=== PATIENT | female | born 1975 | race Native Hawaiian/Other Pacific Islander ===

== ENCOUNTER 2017-02-28 14:47 | Inpatient (IN) | payer OTHER ==
--- NOTE | 2017-02-28 16:38 | History and Physical Report ---
History of Present Illness Date of admission: 02/28/17 16:19 Chief complaint: My blood is low History of present illness: 41 YO Female with Nicotine Dependence, Migraine Headache, Chronic Anemia admitted directly at the request of Dr. Sharad Vasquez. Pt seen and evaluated in PCP office and found to have persistent anemia while on iron replacement therapy. Pt seen and evaluated upon arrival. Pt acknowledges feeling weak. Pt denies fever, chills, CP, Palpitations, NVD, BRBPR, unintentional weight loss, night sweats, hematemesis, easy bruising, trauma, or recent ill contacts. Past History Past Medical History: anemia, migraines Past Surgical History: No surgical history, Other (reviewed) Social history: , lives with family, smoking Family history: no significant family history Medications and Allergies Allergies Allergy/AdvReac Type Severity Reaction Status Date / Time No Known Allergies Allergy Verified 11/11/15 23:43 Home Medications Medication Instructions Recorded Confirmed Last Taken Type Butalbital-Acetaminophn 50-325 40 mg PO DAILY 11/11/15 11/11/15 1 Day Ago History ~11/10/15 Ferrous Sulfate 325 mg PO DAILY 11/11/15 11/11/15 1 Day Ago History ~11/10/15 Meclizine 25 mg PO DAILY 11/11/15 11/11/15 1 Day Ago History ~11/10/15 Nystatin 100,000 units PO 4XD 11/11/15 11/11/15 1 Day Ago History ~11/10/15 HYDROcodone/APAP 5-325 [[place] 1 each PO Q6HR PRN #10 tablet 11/12/15 Unknown Rx 5/325] Review of Systems Constitutional: weakness, no weight loss, no weight gain, no fever, no chills, no night sweats Ears, nose, mouth and throat: no ear pain, no ear discharge, no tinnitis, no decreased hearing, no nose pain, no nasal congestion Breasts: no change in shape, no swelling, no mass Cardiovascular: no chest pain, no orthopnea, no palpitations, no rapid/ irregular heart beat, no edema, no syncope Respiratory: no cough, no cough with sputum, no excessive sputum, no hemoptysis , no shortness of breath Gastrointestinal: no nausea, no vomiting, no diarrhea, no constipation, no hematemesis, no coffee ground emesis, no BRBPR, no melena, no hematochezia, no loss of appetite, no early satiety Genitourinary Female: no pelvic pain, no flank pain, no menorrhagia, no dysuria Rectal: no pain, no incontinence, no bleeding, no itching Musculoskeletal: no neck stiffness, no neck pain, no shooting arm pain, no arm numbness/tingling, no low back pain Integumentary: no rash, no pruritis, no redness, no sores, no wounds Neurological: no head injury, no transient paralysis, no paralysis, no weakness , no parathesias, no numbness Psychiatric: no anxiety, no memory loss, no change in sleep habits, no sleep disturbances, no insomnia, no hypersomnia Endocrine: no cold intolerance, no heat intolerance, no polyphagia, no excessive thirst, no polydipsia, no polyuria Hematologic/Lymphatic: no easy bruising, no easy bleeding, no lymphadenopathy, no lymphedema Allergic/Immunologic: no urticaria, no allergic rhinitis, no wheezing Exam - Constitutional General appearance: Present: mild distress - EENT Eyes: Present: PERRL, EOM intact (conjunctival pallor) ENT: hearing intact, clear oral mucosa - Neck Neck: Present: supple, normal ROM - Respiratory Respiratory effort: normal Respiratory: bilateral: CTA - Cardiovascular Heart Sounds: Present: S1 & S2. Absent: rub, click - Extremities Extremities: pulses symmetrical, No edema Peripheral Pulses: within normal limits - Abdominal General gastrointestinal: Present: soft, non-tender, non-distended, normal bowel sounds Female genitourinary: Present: normal - Integumentary Integumentary: Present: clear, warm, dry - Musculoskeletal Musculoskeletal: gait normal, strength equal bilaterally - Psychiatric Psychiatric: appropriate mood/affect, intact judgment & insight - Neurologic Neurologic: CNII-XII intact, moves all extremities Results - Labs CBC & Chem 7: 03/01/17 02:30 02/28/17 21:02 Assessment and Plan - Patient Problems (1) Symptomatic anemia Current Visit: Yes Status: Acute Plan to address problem: PRBC Transfusion, Iron panel, Hematology consult, CT abdomen pelvis, (2) Migraine headache Current Visit: Yes Status: Acute Qualifiers: Migraine type: without aura Intractability: not intractable Plan to address problem: Supportive care, pain control, continue medical management. (3) Nicotine dependence Current Visit: Yes Status: Acute Qualifiers: Nicotine product type: cigarettes Substance use status: in withdrawal Qualified Code(s): F17.213 - Nicotine dependence, cigarettes, with withdrawal Plan to address problem: supportive care, Pt refused to pick quit date. Pt counseled. (4) DVT prophylaxis Current Visit: Yes Status: Acute
[2017-02-28] MEDS ORDERED: DULCOLAX PR PRN (16:41)
[2017-02-28] MEDS ORDERED: MILK OF MAGNESIA PO PRN (16:41)
[2017-02-28] MEDS ORDERED: ZOFRAN IV PRN (16:41)
[2017-02-28] MEDS ORDERED: PROVENTIL IH PRN (16:41)
[2017-02-28] MEDS ORDERED: PERCOCET 5/325 PO PRN (16:41)
[2017-02-28] MEDS ORDERED: TYLENOL PO PRN (16:41)
--- NOTE | 2017-02-28 19:16 | XRay Report ---
FINAL REPORT EXAM: XR CHEST 1V AP HISTORY: dupsnea TECHNIQUE: upright single view chest PRIORS: None. FINDINGS: Cardiac and mediastinal contours are unremarkable. No focal pulmonary infiltrate is identified. No pleural fluid collection seen. Pulmonary vasculature is unremarkable. IMPRESSION: Negative single-view chest
[2017-02-28 21:31] LABS: Hematocrit 20.3 % (30.3-42.9); Red Blood Count 3.36 M/mm3 (3.65-5.03)
[2017-02-28 21:32] LABS: Basophils # (Auto) 0.1 K/mm3 (0.0-0.1); Basophils % (Auto) 1.9 % (0.0-1.8); Eosinophils # (Auto) 0.1 K/mm3 (0.0-0.4); Eosinophils % (Auto) 1.5 % (0.0-4.3); Lymphocytes # (Auto) 1.8 K/mm3 (1.2-5.4); Mean Corpuscular HGB Conc 29 % (30-34); Mean Corpuscular Hemoglobin 17 pg (28-32); Mean Corpuscular Volume 60 fl (79-97); Monocytes # (Auto) 0.4 K/mm3 (0.0-0.8); Monocytes % (Auto) 5.7 % (0.0-7.3); Platelet Count 314 K/mm3 (140-440); Red Cell Distribution Width 23.4 % (13.2-15.2)
[2017-02-28 21:38] LABS: Hemoglobin 5.9 gm/dl (10.1-14.3)
[2017-02-28 21:53] LABS: Alanine Aminotransferase 9 units/L (7-56); Albumin 4.1 g/dL (3.9-5); BUN/Creatinine Ratio 32; Blood Urea Nitrogen 16 mg/dL (7-17); Calcium 8.7 mg/dL (8.4-10.2); Hemolysis Index 4
[2017-03-01 03:12] LABS: Hemoglobin 5.6 gm/dl (10.1-14.3)
[2017-03-01] MEDS ORDERED: NACL 0.9% 500 ML 500 ML IV ONE (03:31)
--- NOTE | 2017-03-01 09:45 | Cat Scan Report ---
CT ABDOMEN PELVIS WITH CONTRAST: HISTORY: Anemia. COMPARISON: none. TECHNIQUE: Helical CT in 1.25mm intervals following IV contrast. Sagittal and coronal reconstructions. FINDINGS: Lung bases: Normal. Liver: Normal. Biliary system: Normal. Pancreas: Normal. Spleen: Normal. Kidneys/ureters/bladder: Normal. Adrenal glands: Normal. Aorta: Normal. Intestines: Normal. Appendix: Normal. Pelvic viscera: Normal. Ascites: None. Adenopathy: None. Musculoskeletal: Normal. IMPRESSION: Unremarkable CT scan of the abdomen and pelvis with contrast.
[2017-03-01] MEDS ORDERED: FEOSOL PO SCH (10:00)
[2017-03-01] MEDS ORDERED: ANTIVERT PO SCH (10:00)
[2017-03-01] MEDS ORDERED: NON-FORMULARY (Ferrous Sulfate 325 MG) PO SCH (10:00)
[2017-03-01] MEDS ORDERED: BUTALBITAL ACETAMINOPHN PO SCH (10:00)
[2017-03-01] MEDS ORDERED: MECLIZINE 25 MG PO SCH (10:00)
--- NOTE | 2017-03-01 10:59 | Discharge Summary ---
Providers - Providers Date of Admission: 02/28/17 16:19 Attending physician: STANLEY BUCIO MD 03/01/17 03:18 Consult to Physician [CONS] Urgent Consulting Provider: MANUEL HOFF Reason For Exam: Anemia Place consult to:: Dr. Hoff Notified:: Dr. Ramos Phone number called:: [phone] Was contact made?: Yes If yes, spoke with:: Dr. Hoff Primary care physician: VY GAY Hospitalization Reason for admission: symptomatic anemia Hospital course: Patient is a 41-year-old female with history of anemia who was sent by the primary care physician for direct admit for blood transfusion. On admission patient was found to have severely decreased hemoglobin at 5. She was transfused 2 units packed red blood cell with good resolution. She is totally asymptomatic at this time. She reports that she normally gets IV iron infusion. She denies any GI bleed she reports 5 day menstrual cycle which she does not describe as heavy. She understands to follow-up with hematology outpatient and to continue her primary care sense of counseling was provided to the patient presented to quit tobacco use patient verbalized understanding. 15 minutes was spent on this counseling Discharge diagnosis (1) Symptomatic anemia (2) Migraine headache (3) Nicotine dependence (4) iron deficiency anemia Disposition: TO HOME OR SELFCARE Time spent for discharge: 35 mins Core Measure Documentation - Palliative Care Palliative Care/ Comfort Measures: Not Applicable - Core Measures Any of the following diagnoses?: none - VTE Discharge Requirements Deep Vein Thrombosis/Pulmonary Embolism Present on Admission: No Exam - Physical Exam Narrative exam: VITAL SIGNS: Reviewed. GENERAL: The patient appeared well nourished and normally developed. Vital signs as documented. HEAD: No signs of head trauma. EYES: Pupils are equal. Extraocular motions intact. EARS: Hearing grossly intact. MOUTH: Oropharynx is normal. NECK: No adenopathy, no JVD. CHEST: Chest with clear breath sounds bilaterally. No wheezes, rales, or rhonchi. CARDIAC: Regular rate and rhythm. S1 and S2, without murmurs, gallops, or rubs. VASCULAR: No Edema. Peripheral pulses normal and equal in all extremities. ABDOMEN: Soft, without detectable tenderness. No sign of distention. No rebound or guarding, and no masses palpated. Bowel Sounds normal. MUSCULOSKELETAL: Good range of motion of all major joints. Extremities without clubbing, cyanosis or edema. NEUROLOGIC EXAM: Alert and oriented x 3. No focal sensory or strength deficits. Speech normal. Follows commands. PSYCHIATRIC: Mood normal. SKIN: No rash or lesions. - Constitutional Vitals: Temp Pulse Resp BP Pulse Ox 98.6 F 76 18 142/56 100 03/01/17 07:47 03/01/17 07:47 03/01/17 07:47 03/01/17 07:47 03/01/17 07:47 Plan Activity: advance as tolerated, fall precautions Diet: low fat Special Instructions: smoking cessation Follow up with: VY GAY MD [Primary Care Provider] - 7 Days MANUEL HOFF DO [Staff Physician] - 7 Days Prescriptions: Ferrous Sulfate [Feosol 325 MG tab] 325 mg PO BID #60 tablet
[2017-03-01] MEDS ORDERED: NACL 0.9% 500 ML 500 ML ONE (11:24)
[2017-03-01 13:58] LABS: % Iron Saturation 2.55 %
[2017-03-01 17:59] LABS: Hematocrit 27.7 % (30.3-42.9); Hemoglobin 8.6 gm/dl (10.1-14.3)
[2017-03-01 18:16] VITALS: BP 135/69
== END 2017-03-01 19:00 | disposition home or self-care (01) | DRG 812 ==
LOC: UNDOADMIN 14:47 → 3A 14:47
PROVIDERS: ADMIT Internal Medicine; ATTEND Internal Medicine
PROC: 30233N1 Transfusion of Nonautologous Red Blood Cells into Peripheral Vein, Percutaneous Approach (ICD-10-PCS; principal; 2017-03-01)
DX: D64.9 Anemia, unspecified (principal); G43.009 Migraine without aura, not intractable, without status migrainosus; F17.200 Nicotine dependence, unspecified, uncomplicated
CPT/HCPCS: 36415; 71045; 74177; 80053; 82270; 83550; 85014; 85018; 85025; 86850; 86900; 86901; 86920; 93005; 93010; J7040; P9016; Q9967

== ENCOUNTER 2019-01-28 17:06 | Inpatient (IN) | payer OTHER ==
--- NOTE | 2019-01-28 17:34 | Cat Scan Report ---
CT head/brain wo con INDICATION / CLINICAL INFORMATION: 43 years Female; neuro deficits <6hrs or sx present upon awakening. Altered mental status and hyperte nsion TECHNIQUE: Routine CT head without contrast. All CT scans at this location are performed using CT dos e reduction for ALARA by means of automated exposure control. COMPARISON: None. FINDINGS: BRAIN / INTRACRANIAL CONTENTS: No acute hemorrhage, mass effect, midline shift, hydrocephalus, or acu te, large territorial infarct. No chronic infarct or atrophy appreciated. No significant white matter abnormality. CRANIOCERVICAL JUNCTION: No significant abnormality. ORBITS: No significant abnormality of visualized orbits. SINUSES / MASTOIDS: No significant abnormality the visualized paranasal sinuses or mastoid air cells. ADDITIONAL FINDINGS: None. IMPRESSION: 1. No focal mass, hemorrhage, hydrocephalus, or acute, large territorial infarct. This exam was performed as part of a code stroke protocol. The exam was completed on 01/28/2019 4:22 PM. The exam was reviewed at 4:[address] Siegel was notified at 4:27 PM. Signer Name: Bernardo Baker MD, III Signed: 01/28/2019 5:29 PM Workstation Name: [id number]
--- NOTE | 2019-01-28 17:40 | Emergency Department Report ---
ED Altered Mental Status HPI - General Stated Complaint: STROKE Time Seen by Provider: 01/28/19 17:17 - History of Present Illness Initial Comments: Patient is 43 years old female with previous history of migraine and undiagnosed hypertension. Patient presented to the ER via EMS for evaluation of possible stroke. Patient's significant other stated that patient was doing well until approximately 1 PM when she started complaining of headache and then she went to sleep. Patient found to be unresponsive. Patient is unable to provide any more history. Patient found to have a blood pressure of 224/116. Stroke protocol immediately initiated and patient moved to CT. Telemetry neurology immediately consulted. MD Complaint: altered mental status, decreased responsiveness -: This afternoon Severity: severe - Related Data Home Medications Medication Instructions Recorded Confirmed Last Taken Butalbital-Acetaminophn 50-325 40 mg PO DAILY 11/11/15 11/11/15 1 Day Ago ~11/10/15 Ferrous Sulfate 325 mg PO DAILY 11/11/15 11/11/15 1 Day Ago ~11/10/15 Meclizine 25 mg PO DAILY 11/11/15 11/11/15 1 Day Ago ~11/10/15 Nystatin 100,000 units PO 4XD 11/11/15 11/11/15 1 Day Ago ~11/10/15 Previous Rx's Medication Instructions Recorded Last Taken Type HYDROcodone/APAP 5-325 [[place] 1 each PO Q6HR PRN #10 tablet 11/12/15 Unknown Rx 5-325 mg TAB] Ferrous Sulfate [Feosol 325 MG tab] 325 mg PO BID #60 tablet 03/01/17 Unknown Rx Allergies Allergy/AdvReac Type Severity Reaction Status Date / Time No Known Allergies Allergy Verified 11/11/15 23:43 ED Review of Systems ROS: Stated complaint: STROKE Other details as noted in HPI Comment: All other systems reviewed and negative Constitutional: denies: chills, fever Respiratory: denies: cough, shortness of breath, SOB with exertion Cardiovascular: denies: chest pain, palpitations Gastrointestinal: denies: abdominal pain, nausea, diarrhea, constipation, hematemesis, hematochezia Musculoskeletal: denies: back pain Neurological: headache ED Past Medical Hx - Past Medical History Hx Congestive Heart Failure: No Hx Diabetes: No Hx Headaches / Migraines: Yes Hx Psychiatric Treatment: Yes (Depression) Hx Asthma: No Hx HIV: No Additional medical history: anemia - Surgical History Past Surgical History?: Yes Additional Surgical History: x 2 - Social History Smoking Status: Never Smoker - Medications Home Medications: Home Medications Medication Instructions Recorded Confirmed Last Taken Type Butalbital-Acetaminophn 50-325 40 mg PO DAILY 11/11/15 11/11/15 1 Day Ago History ~11/10/15 Ferrous Sulfate 325 mg PO DAILY 11/11/15 11/11/15 1 Day Ago History ~11/10/15 Meclizine 25 mg PO DAILY 11/11/15 11/11/15 1 Day Ago History ~11/10/15 Nystatin 100,000 units PO 4XD 11/11/15 11/11/15 1 Day Ago History ~11/10/15 HYDROcodone/APAP 5-325 [[place] 1 each PO Q6HR PRN #10 tablet 11/12/15 Unknown Rx 5-325 mg TAB] Ferrous Sulfate [Feosol 325 MG tab] 325 mg PO BID #60 tablet 03/01/17 Unknown Rx ED Physical Exam - General General appearance: obtunded - Head Head exam: Present: atraumatic, normocephalic - Eye Eye exam: Present: normal appearance, PERRL - ENT ENT exam: Present: normal exam, normal orophraynx, mucous membranes moist - Neck Neck exam: Present: normal inspection, full ROM. Absent: tenderness, meningismus, lymphadenopathy, thyromegaly - Respiratory Respiratory exam: Present: normal lung sounds bilaterally - Cardiovascular Cardiovascular Exam: Present: regular rate, normal rhythm, normal heart sounds - GI/Abdominal GI/Abdominal exam: Present: soft, normal bowel sounds. Absent: distended, tend erness, guarding, rebound, rigid, organomegaly, mass, bruit, pulsatile mass, hernia - Extremities Exam Extremities exam: Present: normal inspection, full ROM, normal capillary refill. Absent: pedal edema, calf tenderness - Back Exam Back exam: Present: normal inspection, full ROM. Absent: CVA tenderness (R), CVA tenderness (L) - Neurological Exam Neurological exam: Present: altered - Skin Skin exam: Present: warm, intact, normal color - Assessment Assessment Interval: Baseline ED Course Vital Signs 01/28/19 01/28/19 01/28/19 17:24 17:46 18:00 Temperature 97.9 F Pulse Rate 76 71 66 Respiratory 17 14 16 Rate Blood Pressure 191/81 173/80 Blood Pressure 191/81 [Right] O2 Sat by Pulse 100 100 100 Oximetry 01/28/19 01/28/19 01/28/19 19:54 19:58 21:03 Temperature 98.8 F Pulse Rate 73 Respiratory 12 12 16 Rate Blood Pressure Blood Pressure 165/78 [Right] O2 Sat by Pulse 100 100 Oximetry - Lab Data Result diagrams: 01/28/19 17:47 01/28/19 17:47 Lab Results 01/28/19 01/28/19 01/28/19 Range/Units 17:47 17:47 17:47 WBC 7.6 (4.5-11.0) K/mm3 RBC 4.07 (3.65-5.03) M/mm3 Hgb 10.2 (10.1-14.3) gm/dl Hct 31.8 (30.3-42.9) % MCV 78 L (79-97) fl MCH 25 L (28-32) pg MCHC 32 (30-34) % RDW 19.0 H (13.2-15.2) % Plt Count 366 (140-440) K/mm3 Lymph % (Auto) 15.3 (13.4-35.0) % [place] % (Auto) 10.4 H (0.0-7.3) % Eos % (Auto) 0.2 (0.0-4.3) % Baso % (Auto) 0.9 (0.0-1.8) % Lymph # 1.2 (1.2-5.4) K/mm3 [place] # 0.8 (0.0-0.8) K/mm3 Eos # 0.0 (0.0-0.4) K/mm3 Baso # 0.1 (0.0-0.1) K/mm3 Seg Neutrophils % 73.2 H (40.0-70.0) % Seg Neutrophils # 5.6 (1.8-7.7) K/mm3 PT 13.3 (12.2-14.9) Sec. INR 1.00 (0.87-1.13) APTT 26.4 (24.2-36.6) Sec. Thrombin Time (15.1-19.6) Sec. Sodium 138 (137-145) mmol/L Potassium 3.6 (3.6-5.0) mmol/L Chloride 101.2 (98-107) mmol/L Carbon Dioxide 19 L (22-30) mmol/L Anion Gap 21 mmol/L BUN 19 H (7-17) mg/dL Creatinine 0.6 L (0.7-1.2) mg/dL Estimated GFR > 60 ml/min BUN/Creatinine Ratio 32 % Glucose 114 H (65-100) mg/dL Calcium 9.1 (8.4-10.2) mg/dL Troponin T < 0.010 (0.00-0.029) ng/mL 01/28/19 Range/Units 17:47 WBC (4.5-11.0) K/mm3 RBC (3.65-5.03) M/mm3 Hgb (10.1-14.3) gm/dl Hct (30.3-42.9) % MCV (79-97) fl MCH (28-32) pg MCHC (30-34) % RDW (13.2-15.2) % Plt Count (140-440) K/mm3 Lymph % (Auto) (13.4-35.0) % [place] % (Auto) (0.0-7.3) % Eos % (Auto) (0.0-4.3) % Baso % (Auto) (0.0-1.8) % Lymph # (1.2-5.4) K/mm3 [place] # (0.0-0.8) K/mm3 Eos # (0.0-0.4) K/mm3 Baso # (0.0-0.1) K/mm3 Seg Neutrophils % (40.0-70.0) % Seg Neutrophils # (1.8-7.7) K/mm3 PT (12.2-14.9) Sec. INR (0.87-1.13) APTT (24.2-36.6) Sec. Thrombin Time 18.1 (15.1-19.6) Sec. Sodium (137-145) mmol/L Potassium (3.6-5.0) mmol/L Chloride (98-107) mmol/L Carbon Dioxide (22-30) mmol/L Anion Gap mmol/L BUN (7-17) mg/dL Creatinine (0.7-1.2) mg/dL Estimated GFR ml/min BUN/Creatinine Ratio % Glucose (65-100) mg/dL Calcium (8.4-10.2) mg/dL Troponin T (0.00-0.029) ng/mL - EKG Data -: EKG Interpreted by Me EKG shows normal: sinus rhythm Rate: normal Interpretation: no acute changes - Radiology Data Radiology results: report reviewed - Medical Decision Making Patient is 43 years old female with previous history of migraine and undiagnosed hypertension. Patient presented to the ER via EMS for evaluation of possible stroke. Patient's significant other stated that patient was doing well until approximately 1 PM when she started complaining of headache and then she went to sleep. Patient found to be unresponsive. Patient is unable to provide any more history. Patient found to have a blood pressure of 224/116. Stroke protocol immediately initiated and patient moved to CT. Telemetry neurology immediately consulted. CT brain is negative for acute finding. Labs reviewed and is unremarkable. Patient has been evaluated by Dr. Gaspar from a stroke telemetry neurology. He stated that patient is not a TPA candidate because of the onset of the symptoms more than 4.5 hours. He also advised that patient is not a thrombectomy a candidate since her presentation is not consistent with large vessel occlusion. I discussed the patient with Dr. Esperanza Shafer, She agreed to admit the patient to medical service for further management. Critical Care Time: Yes Critical care time in (mins) excluding proc time.: 30 Critical care attestation.: If time is entered above; I have spent that time in minutes in the direct care of this critically ill patient, excluding procedure time. ED Disposition Clinical Impression: Complicated headache syndromes, CVA (cerebral vascular accident), Headache Disposition: 09 OP ADMIT IP TO THIS HOSP Is pt being admited?: Yes Condition: Stable
[2019-01-28] MEDS ORDERED: MORPHINE 4 MG/1 ML INJ IV ONE (17:52)
[2019-01-28] MEDS ORDERED: ONDANSETRON 4 MG/2 ML INJ IV ONE (17:52)
--- NOTE | 2019-01-28 17:58 | Emergency Department Report ---
ED Neuro Deficit HPI - General Chief Complaint: Headache Stated Complaint: STROKE Time Seen by Provider: 01/28/19 17:17 Source: family - History of Present Illness Initial Comments: [facility] TeleStroke Metrics: LKW: 1200 Door Time: 1706 [facility] Contacted: 1713 [facility] at Bedside: 1730 NIHSS: 1737 Decision on Alteplase: Not to give as her last known well time is greater than 4.5 hours prior to her presentation. Interventional Candidate: Not a candidate as her symptoms are not consistent with a large vessel proximal occlusion. Chief Complaint: Severe headaches and right-sided weakness HPI: Asked to see this patient in emergent telemedicine consultation utilizing interactive audio and video technologies. Consultation was performed with assistance of ancillary / medical staff at bedside. Verbal consent to perform the examination with telemedicine was obtained. Patients family agreed to proceed with the consultation for acute stroke protocol. 43-year-old right-handed female who comes to the emergency room by EMS as a stroke alert for severe headaches and right-sided weakness. Patient's children are at bedside to assist with history and Romanian translation. Patient with a longstanding history of migraine headaches and essentially gets significant headaches every other day. She usually takes ibuprofen for her headaches. She also has been taking Xanax more recently and some type of unknown antidepressant. According to the son, he last saw the patient around 12 PM. She was complaining of chest pain and a headache. She was very tearful. He gave her some ibuprofen, and she went to sleep. He went to go do some errands. He came back home around 4 PM, and he noted the patient was unresponsive. She continued to complain of a significant headache and was noted to have right-sided weakness. Therefore, EMS was called. Currently, the patient has evidence of right-sided weakness and numbness. She is still very tearful and tremulous. She complains of a significant left-sided headache with significant nausea but no photophobia. She states that her current headaches are different from her typical migraines. She complains of an exploding type headache on the left side of her head. Head CT came back negative. PMH: Migraine headaches, anemia, and anxiety disorder SOC: Positive for tobacco abuse. Negative x2. Patient is . She lives with her son. FMH: Positive for stroke. ROS: 13 point review of systems were reviewed with the patients family, and are all negative with the exception of the aforementioned in the history of present illness. VS: Temperature 97.9 F, pulse 76, respiration 17, blood pressure 191/81, oxygen saturation 100% Exam: Patient is in moderate distress and is tearful. Patient appears as stated age. No obvious acute respiratory or cardiac distress. Patient is well groomed and well-nourished. 1a- LOC: Keenly responsive - 0 1b- LOC questions: Answers both questions correctly - 0 1c- LOC commands- Performs both tasks correctly- 0 2- Gaze: Normal; no gaze paresis or gaze deviation - 0 3- Visual Grant: normal, no Visual field deficit - 0 4- Facial movements: no facial palsy - 0 5- Upper limb motor right arm drift - 2 6- Lower limb motor right leg drift - 2 7- Limb Coordination: absent ataxia - 0 8- Sensory: right sensory loss - 1 9- Language - No aphasia - 0 10- Speech - Mild dysarthria - 1 11- Neglect / Extinction - none found - 0 NIHSS score: 6 Diagnostic Data: CT of the head showed no acute intracranial process Medical Data Reviewed: 1.Data?reviewed include clinical labs, radiology,?and medical tests; 2.Tests?results discussed w/performing or interpreting physician; 3.Obtaining/reviewing old medical records; 4.Obtaining?case history from another source; 5.Independent?review of image, tracing, or specimen. Medical Decision Making: - Extensive number of diagnosis or management options are considered below. - Extensive amount of complex data reviewed. - High risk of complication and/or morbidity or mortality are associated with differential diagnostic considerations below. - There may be?uncertain?outcome and increased probability of prolonged functional impairment or high probability of severe prolonged functional impairment associated with some of these differential diagnosis. Differential Diagnosis for Stroke: 1.?Cardioembolic?stroke 2. Small vessel disease/lacune 3. Thromboembolic, fivvet-wh-puygwn mechanism 4.?Hypercoagulable?state-related infarct 5. Transient ischemic attack 6. Thrombotic mechanism, large artery disease Assessment: 1. Probable complicated migraine 2. Chest pain 3. Tobacco abuse 4. Migraine headaches/chronic daily headaches 5. Anxiety disorder 6. Anemia Recommendations: Patient should have an emergent CTA of the head and neck to rule out any intracranial aneurysm or vascular injury. Patient should be admitted to the hospital for further work-up of her symptoms. Chest pain work-up per primary team. Check urine drug screen, hemoglobin A1c, and lipid panel. Check MRI brain with and without contrast to rule out any acute intracranial process. IV migraine cocktail medications per ER team. Consult PT, OT, and ST. Check echocardiogram to gauge her cardiac function. Maintain the patient on telemetry to monitor for any paroxysmal cardiac arrhythmias. Patient would benefit from a lumbar puncture for CSF analysis within the next 24 hours if she continues to have severe headaches and also if her MRI/CTAs are negative. Continue supportive care. Plan of care was discussed with the patient's family. Thank you for allowing [facility] to participate in the care of your patient. Please call me, Dr. Giordano, with any questions at [phone]. Case discussed with the ER staff and Dr. Linda. Critical Care notation: I was called to see this critical patient emergently. I personally evaluated this critical patient for acute stroke evaluation, and determining their eligibility for IV Alteplase and interventional therapies. I have spent approximately 11 minutes with the patient, including time at bedside, time discussing the case with other physicians, reviewing plan of care, and time independently reviewing the records and scans. Severity: severe - Related Data Home Medications: Home Medications Medication Instructions Recorded Confirmed Last Taken Butalbital-Acetaminophn 50-325 40 mg PO DAILY 11/11/15 11/11/15 1 Day Ago ~11/10/15 Ferrous Sulfate 325 mg PO DAILY 11/11/15 11/11/15 1 Day Ago ~11/10/15 Meclizine 25 mg PO DAILY 11/11/15 11/11/15 1 Day Ago ~11/10/15 Nystatin 100,000 units PO 4XD 11/11/15 11/11/15 1 Day Ago ~11/10/15 Previous Rx's Medication Instructions Recorded Last Taken Type HYDROcodone/APAP 5-325 [[place] 1 each PO Q6HR PRN #10 tablet 11/12/15 Unknown Rx 5-325 mg TAB] Ferrous Sulfate [Feosol 325 MG tab] 325 mg PO BID #60 tablet 03/01/17 Unknown Rx Allergies/Adverse Reactions: Allergies Allergy/AdvReac Type Severity Reaction Status Date / Time No Known Allergies Allergy Verified 11/11/15 23:43 ED Review of Systems ROS: Stated complaint: STROKE Other details as noted in HPI Constitutional: denies: chills, fever Respiratory: denies: cough, shortness of breath, SOB with exertion Cardiovascular: denies: chest pain, palpitations Gastrointestinal: denies: abdominal pain, nausea, diarrhea, constipation, hematemesis, hematochezia Musculoskeletal: denies: back pain Neurological: headache ED Past Medical Hx - Past Medical History Hx Congestive Heart Failure: No Hx Diabetes: No Hx Headaches / Migraines: Yes Hx Psychiatric Treatment: Yes (Depression) Hx Asthma: No Hx HIV: No Additional medical history: anemia - Surgical History Past Surgical History?: Yes Additional Surgical History: x 2 - Social History Smoking Status: Never Smoker - Medications Home Medications: Home Medications Medication Instructions Recorded Confirmed Last Taken Type Butalbital-Acetaminophn 50-325 40 mg PO DAILY 11/11/15 11/11/15 1 Day Ago History ~11/10/15 Ferrous Sulfate 325 mg PO DAILY 11/11/15 11/11/15 1 Day Ago History ~11/10/15 Meclizine 25 mg PO DAILY 11/11/15 11/11/15 1 Day Ago History ~11/10/15 Nystatin 100,000 units PO 4XD 11/11/15 11/11/15 1 Day Ago History ~11/10/15 HYDROcodone/APAP 5-325 [[place] 1 each PO Q6HR PRN #10 tablet 11/12/15 Unknown Rx 5-325 mg TAB] Ferrous Sulfate [Feosol 325 MG tab] 325 mg PO BID #60 tablet 03/01/17 Unknown Rx ED Neuro Physical Exam - General General appearance: obtunded Suspected Stroke: No ED Course Vital Signs 01/28/19 17:24 Temperature 97.9 F Pulse Rate 76 Respiratory 17 Rate Blood Pressure 191/81 [Right] O2 Sat by Pulse 100 Oximetry Critical care attestation.: If time is entered above; I have spent that time in minutes in the direct care of this critically ill patient, excluding procedure time. ED Disposition Clinical Impression: Complicated headache syndromes Disposition: OP ADMIT IP TO THIS HOSP Is pt being admited?: Yes Does the pt Need Aspirin: No Condition: Stable
[2019-01-28 18:11] LABS: Basophils # (Auto) 0.1 K/mm3 (0.0-0.1); Basophils % (Auto) 0.9 % (0.0-1.8); Eosinophils % (Auto) 0.2 % (0.0-4.3); Hematocrit 31.8 % (30.3-42.9); Hemoglobin 10.2 gm/dl (10.1-14.3); Lymphocytes # (Auto) 1.2 K/mm3 (1.2-5.4); Lymphocytes % (Auto) 15.3 % (13.4-35.0); Mean Corpuscular HGB Conc 32 % (30-34); Mean Corpuscular Volume 78 fl (79-97); Monocytes # (Auto) 0.8 K/mm3 (0.0-0.8); Monocytes % (Auto) 10.4 % (0.0-7.3); Platelet Count 366 K/mm3 (140-440); Red Blood Count 4.07 M/mm3 (3.65-5.03)
[2019-01-28 18:16] LABS: Partial Thromboplastin Time 26.4 Sec. (24.2-36.6)
[2019-01-28 18:18] LABS: BUN/Creatinine Ratio 32; Blood Urea Nitrogen 19 mg/dL (7-17); Calcium 9.1 mg/dL (8.4-10.2); Hemolysis Index 7
--- NOTE | 2019-01-28 19:09 | XRay Report ---
CHEST 2 VIEWS INDICATION: chest pain. COMPARISON: 02/28/2017. FINDINGS: Support devices: None. Heart: Within normal limits. Lungs/Pleura: No acute air space or interstitial disease. No significant pleural effusion. IMPRESSION: No acute findings. Signer Name: Dave Fermin MD Signed: 01/28/2019 7:05 PM Workstation Name: [id number]
--- NOTE | 2019-01-28 20:17 | Cat Scan Report ---
CT angio head INDICATION / CLINICAL INFORMATION: 43 years Female; headache right sided weakness. TECHNIQUE: Thin cut axial images obtained through the head during IV bolus contrast administration. S agittal, coronal, and 3 plane MIP reconstructions performed by the technologist. NASCET type criteria used evaluate stenoses. Automated exposure control utilized for radiation reduction purposes. Bolus timing may be suboptimal - vessels not completely opacified peripherally. COMPARISON: None available. FINDINGS: INTERNAL CAROTID ARTERIES: No significant narrowing appreciated. VERTEBROBASILAR SYSTEM: No significant narrowing appreciated. DISTAL BRANCHES: Distal branches of the anterior, middle, and posterior cerebral arteries are fairly symmetric in appearance and number. The P1 segment on the left is hypoplastic-normal variant. ANEURYSM: None identified. ADDITIONAL FINDINGS: Remainder of the surrounding soft tissues are grossly normal. IMPRESSION: No vessel occlusion or significant narrowing appreciated on this mildly limited CTA of the head. Signer Name: Bernardo Baker MD, III Signed: 01/28/2019 8:12 PM Workstation Name: [id number]
--- NOTE | 2019-01-28 20:21 | Cat Scan Report ---
CT angio neck INDICATION / CLINICAL INFORMATION: 43 years Female; headache right sided weakness. TECHNIQUE: Thin cut axial images obtained through the head during IV bolus contrast administration. S agittal, coronal, and 3 plane MIP reconstructions performed by the technologist. NASCET type criteria used evaluate stenoses. All CT scans at this location are performed using CT dose reduction for ALAR A by means of automated exposure control. The vessels are suboptimally opacified - bolus timing issue s suspected. COMPARISON: None available. FINDINGS: ARCH: Bovine arch configuration noted. CAROTID ARTERIES: The visualized common and internal carotid arteries are widely patent. VERTEBRAL ARTERIES: Codominant vertebral system seen. No significant stenosis appreciated. ADDITIONAL FINDINGS: Remainder of the surrounding soft tissues are grossly normal. IMPRESSION: No significant stenosis appreciated on this limited CTA of the neck. Signer Name: Bernardo Baker MD, III Signed: 01/28/2019 8:16 PM Workstation Name: [email or web address] SportsKINDRED HOSPITAL AT MORRISLester
[2019-01-28] MEDS ORDERED: MORPHINE 2 MG/1 ML INJ IV ONE (20:53)
[2019-01-28] MEDS ORDERED: ACETAMINOPHEN 325 MG TAB PO PRN (22:11)
[2019-01-28] MEDS ORDERED: METOCLOPRAMIDE 10 MG TAB PO PRN (22:11)
[2019-01-28] MEDS ORDERED: ONDANSETRON 4 MG/2 ML INJ IV PRN (22:11)
[2019-01-28] MEDS ORDERED: MAGNESIUM HYDROXIDE (MOM) ORAL LIQD UDC PO PRN (22:11)
--- NOTE | 2019-01-28 22:17 | History and Physical Report ---
History of Present Illness History of present illness: 43-year-old woman with a history of hypertension, migraine, anxiety, depression comes to the emergency room for evaluation of headache. Headache is on the left side, typical of her migraine headache which she describes a pressure, constant, intensity 5/10. States she had decreased responsiveness, right-sided weakness. Also complained of chest pain in the left chest which she described as a pressure-like sensation, constant, intensity 5/10, radiating to the left arm, associated with nausea, no vomiting, shortness of breath, diaphoresis or palpitation Review of systems Constitutional: no weight loss, chills, fever Ears, eyes, nose, mouth and throat: no nasal congestion, no nasal discharge, no sinus pressure, no vision change, no red eye. Neck: No neck pain or rigidity. Cardiovascular: no chest pain, palpitations Respiratory: no cough, shortness of breath Gastrointestinal: no hematochezia, abdominal pain Genitourinary : no frequency , no hematuria Musculoskeletal: no joint swelling or muscle ache Integumentary: no rash, no pruritis Neurological:no parathesias numbness, focal weakness Endocrine: no cold or heat intolerance, no polyuria or polydipsia Hematologic/Lymphatic: no easy bruising, no easy bleeding, no gland swelling Allergic/Immunologic: no urticaria, no angioedema. PAST MEDICAL HISTORY: hypertension, migraine, anxiety, depression PAST SURGICAL HISTORY: c/section x 3 SOCIAL HISTORY:social alcohol,smoke 1 pack/week, no drug FAMILY HISTORY: Hypertension Medications and Allergies Allergies Allergy/AdvReac Type Severity Reaction Status Date / Time No Known Allergies Allergy Verified 11/11/15 23:43 Home Medications Medication Instructions Recorded Confirmed Last Taken Type Butalbital-Acetaminophn 50-325 40 mg PO DAILY 11/11/15 11/11/15 1 Day Ago History ~11/10/15 Ferrous Sulfate 325 mg PO DAILY 11/11/15 11/11/15 1 Day Ago History ~11/10/15 Meclizine 25 mg PO DAILY 11/11/15 11/11/15 1 Day Ago History ~11/10/15 Nystatin 100,000 units PO 4XD 11/11/15 11/11/15 1 Day Ago History ~11/10/15 HYDROcodone/APAP 5-325 [[place] 1 each PO Q6HR PRN #10 tablet 11/12/15 Unknown Rx 5-325 mg TAB] Ferrous Sulfate [Feosol 325 MG tab] 325 mg PO BID #60 tablet 03/01/17 Unknown Rx Exam - Physical Exam Narrative exam: Gen. appearance: Patient lying in bed, no apparent distress HEENT: Normocephalic, atraumatic, pupils equally round and reactive to light, extraocular movement intact, and no sclericterus,. No JVD or thyromegaly or nodule,neck supple, no carotid bruit ,mucous membranes moist, no exudate or erythema Heart: S1, S2, irregular rate and rhythm Lungs: Clear bilaterally, breathing comfortable Abdomen: Positive bowel sounds, non-tender, nondistended, no organomegaly Extremity:no edema cyanosis, clubbing Skin: no rash, dry, warm Neuro: Oriented 3, cranial nerves II-12 intact, speech is fluent, motor -right-sided weakness, 4/5 and sensory intact - Constitutional Vitals: Temp Pulse Resp BP Pulse Ox 98.8 F 73 16 165/78 100 01/28/19 19:58 01/28/19 19:58 01/28/19 21:03 01/28/19 19:58 01/28/19 19:58 Results - Labs CBC & Chem 7: 01/28/19 17:47 01/28/19 17:47 Labs: Abnormal lab results 01/28/19 01/28/19 Range/Units 17:47 17:47 MCV 78 L (79-97) fl MCH 25 L (28-32) pg RDW 19.0 H (13.2-15.2) % [place] % (Auto) 10.4 H (0.0-7.3) % Seg Neutrophils % 73.2 H (40.0-70.0) % Carbon Dioxide 19 L (22-30) mmol/L BUN 19 H (7-17) mg/dL Creatinine 0.6 L (0.7-1.2) mg/dL Glucose 114 H (65-100) mg/dL Assessment and Plan CTA head and neck reviewed Assessment Acute CVA Obtain MRI, echo Consult neurology, PT, OT Start aspirin, statin Hypertension: unControlled IV hydralazine as needed for blood pressure control Chest pain Check cardiac enzymes, stress test DVT prophylaxis
--- NOTE | 2019-01-28 22:21 | Consultation ---
HISTORY OF PRESENT ILLNESS: This is a 43-year-old female that presents to the Emergency Room of [facility] as a stroke alert. Conversation was provided by EMS at least 4 [facility] EMS workers were present. The son was distally present nearby, history provided was very sketchy, no one could exactly say what had happened over the course of several hours, as she apparently could not be awoken later in the afternoon. There may be a history that she took an antidepressants and Xanax, which were not prescribed to her. She was not drinking alcohol or taking illicit drugs. She did not receive Marezine or Narcan in the field because of the size of her pupils being regular and reactive. Her pO2 oximeter was 99%. Her glucose was 109. Blood pressure she was normotensive. She had a good respiratory rate. There was no evidence to suggest vomitus. She would not respond to verbal command, voice command. She would not spontaneously open her eyes. She was very flaccid throughout, but occasionally would move her head. Otherwise, her limbs were profoundly flaccid with very little motor tone. She did have full ocular movements, did not vocalize. There is no evidence that she was hearing anything. She seems actually deeply comatose or in a deep stupor, which potentially may be drug induced. I did review her CT scan of the head done acutely off the monitor. It is entirely normal to my view. Did not see any evidence of craniocervical trauma. There were no mass or lesions, romero and white matter normal. No edema is noted. No bleeding is present. The patient's neurological exam is entirely nonfocal at this point given the preliminary history, one would suspect given the fact that she was taking Xanax and antidepressant without supervision. This may be the issue, although ER is pending to see the patient and further assessment will be made. I do not think this represents a metabolic disorder. I do not think this is representing head trauma. I do not think this is infectious in etiology. Further workup is of course pending. I will comment later after reviewing labs and subsequent data points. JOB# [id number] MIKHAIL/NTS
[2019-01-29 00:03] LABS: Benzodiazepines Screen,Urine PRESUMPTIVE NEGATIVE; Cannabinoid Screen,Urine PRESUMPTIVE NEGATIVE; Cocaine Screen,Urine PRESUMPTIVE NEGATIVE; Methadone Screen,Urine PRESUMPTIVE NEGATIVE; Opiate Screen,Urine PRESUMPTIVE NEGATIVE
[2019-01-29 00:11] LABS: Amphetamine Screen,Urine PRESUMPTIVE POSITIVE
[2019-01-29] MEDS: HYDROcodone/ACETAMINOPHEN 5-325 MG TAB PO PRN ×2 (01:47→15:13)
[2019-01-29] MEDS ORDERED: MORPHINE 2 MG/1 ML INJ IV ONE (05:52)
[2019-01-29 07:43] LABS: Chol/HDL Ratio 2.98 %
[2019-01-29 08:00] LABS: Creatine Kinase MB 2.7 ng/mL (0.0-4.0)
[2019-01-29] MEDS ORDERED: ASPIRIN 325 MG TAB PO SCH (10:00)
[2019-01-29] MEDS ORDERED: ENOXAPARIN 30 MG/0.3 ML INJ SUB-Q SCH (10:00)
[2019-01-29] MEDS ORDERED: ENOXAPARIN 40 MG/0.4 ML INJ SUB-Q SCH (10:00)
[2019-01-29] MEDS ORDERED: NON-FORMULARY EACH (Ferrous Sulfate 325 MG) PO SCH (11:15)
[2019-01-29] MEDS ORDERED: HYDROcodone/ACETAMINOPHEN 5-325 MG TAB PO PRN (11:15)
--- NOTE | 2019-01-29 11:22 | Progress Note ---
Assessment and Plan Assessment and plan: Patient is a 43 yo Setswana speaking woman (daughter is a Nurse at [employer])with a history of hypertension, migraine, anxiety and depression who presents to [facility] ED with severe headache and right sided weakness. CODE STROKE called in ER and TeleNeurologist used. Patient not tPA candidate because last known well time is greater than 4.5 hours prior to her presentation. * TTE Conclusions: Estimated EF 55-60%, trace MR * pCXR Impression: No acute findings * CTA neck Impression: no significant stenosis * CTA head Impression: no vessel occlusion or significant narrowing * CT head without contrast negative * UDS +Barbs and Amphetamines Acute CVA suspected Obtain MRI pending Consult neurology, PT, OT Start aspirin, statin Hypertension: unControlled IV hydralazine as needed for blood pressure control Chest pain Check cardiac enzymes, stress test DVT prophylaxis History Interval history: Patient was seen and examined. Follow-up on current diagnosis headache and right sided weakness. Overnight uneventful. Patient denies any chest pain, shortness breath, nausea/vomiting. Imaging, nursing note, chart, labs and old chart reviewed. Discussed with patient. 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 Neuro: CN 2-12 grossly intact, no new focal deficits Psych: calm - Constitutional Vitals: Temp Pulse Resp BP Pulse Ox 98.7 F 76 18 168/82 98 01/29/19 06:15 01/29/19 06:21 01/29/19 06:21 01/29/19 06:21 01/29/19 06:21 Results - Labs CBC & Chem 7: 01/28/19 17:47 01/28/19 17:47 Labs: Laboratory Last Values WBC 7.6 K/mm3 (4.5-11.0) 01/28/19 17:47 RBC 4.07 M/mm3 (3.65-5.03) 01/28/19 17:47 Hgb 10.2 gm/dl (10.1-14.3) 01/28/19 17:47 Hct 31.8 % (30.3-42.9) 01/28/19 17:47 MCV 78 fl (79-97) L 01/28/19 17:47 MCH 25 pg (28-32) L 01/28/19 17:47 MCHC 32 % (30-34) 01/28/19 17:47 RDW 19.0 % (13.2-15.2) H 01/28/19 17:47 Plt Count 366 K/mm3 (140-440) 01/28/19 17:47 Lymph % (Auto) 15.3 % (13.4-35.0) 01/28/19 17:47 Foster % (Auto) 10.4 % (0.0-7.3) H 01/28/19 17:47 Eos % (Auto) 0.2 % (0.0-4.3) 01/28/19 17:47 Baso % (Auto) 0.9 % (0.0-1.8) 01/28/19 17:47 Lymph # 1.2 K/mm3 (1.2-5.4) 01/28/19 17:47 Foster # 0.8 K/mm3 (0.0-0.8) 01/28/19 17:47 Eos # 0.0 K/mm3 (0.0-0.4) 01/28/19 17:47 Baso # 0.1 K/mm3 (0.0-0.1) 01/28/19 17:47 Seg Neutrophils % 73.2 % (40.0-70.0) H 01/28/19 17:47 Seg Neutrophils # 5.6 K/mm3 (1.8-7.7) 01/28/19 17:47 PT 13.3 Sec. (12.2-14.9) 01/28/19 17:47 INR 1.00 (0.87-1.13) 01/28/19 17:47 APTT 26.4 Sec. (24.2-36.6) 01/28/19 17:47 Thrombin Time 18.1 Sec. (15.1-19.6) 01/28/19 17:47 Sodium 138 mmol/L (137-145) 01/28/19 17:47 Potassium 3.6 mmol/L (3.6-5.0) 01/28/19 17:47 Chloride 101.2 mmol/L (98-107) 01/28/19 17:47 Carbon Dioxide 19 mmol/L (22-30) L 01/28/19 17:47 Anion Gap 21 mmol/L 01/28/19 17:47 BUN 19 mg/dL (7-17) H 01/28/19 17:47 Creatinine 0.6 mg/dL (0.7-1.2) L 01/28/19 17:47 Estimated GFR > 60 ml/min 01/28/19 17:47 BUN/Creatinine Ratio 32 % 01/28/19 17:47 Glucose 114 mg/dL (65-100) H 01/28/19 17:47 POC Glucose 121 (70-105) H 01/29/19 06:12 Calcium 9.1 mg/dL (8.4-10.2) 01/28/19 17:47 Total Creatine Kinase 136 units/L (30-135) H 01/29/19 06:59 CK-MB (CK-2) 2.7 ng/mL (0.0-4.0) 01/29/19 06:59 CK-MB (CK-2) Rel Index 1.9 (0-4) 01/29/19 06:59 Troponin T < 0.010 ng/mL (0.00-0.029) 01/29/19 06:59 Triglycerides 83 mg/dL (2-149) 01/29/19 06:59 Cholesterol 203 mg/dL (50-199) H 01/29/19 06:59 LDL Cholesterol Direct 127 mg/dL (50-130) 01/29/19 06:59 HDL Cholesterol 68 mg/dL (40-59) H 01/29/19 06:59 Cholesterol/HDL Ratio 2.98 % 01/29/19 06:59 HCG, Qual Negative (Negative) 01/28/19 Unknown Urine Opiates Screen Presumptive negative 01/28/19 Unknown Urine Methadone Screen Presumptive negative 01/28/19 Unknown Ur Barbiturates Screen Presumptive positive 01/28/19 Unknown Ur Phencyclidine Scrn Presumptive negative 01/28/19 Unknown Ur Amphetamines Screen Presumptive positive 01/28/19 Unknown U Benzodiazepines Scrn Presumptive negative 01/28/19 Unknown Urine Cocaine Screen Presumptive negative 01/28/19 Unknown U Marijuana (THC) Screen Presumptive negative 01/28/19 Unknown Drugs of Abuse Note Disclamer 01/28/19 Unknown Active Medications - Current Medications Current Medications: Generic Name Dose Route Start Last Admin Trade Name Freq PRN Reason Stop Dose Admin Acetaminophen 650 mg 01/28/19 22:11 01/29/19 04:04 Tylenol PO 650 mg Q4H PRN Administration Pain, Mild (1-3) Acetaminophen/Hydrocodone Bitart 1 each 01/28/19 22:11 01/29/19 01:47 [place] 5/325 PO 1 each Q6H PRN Administration Pain, Moderate (4-6) Acetaminophen/Hydrocodone Bitart 1 each 01/29/19 11:15 [place] 5/325 PO Q6HR PRN PAIN Aspirin 325 mg 01/29/19 10:00 01/29/19 10:54 Aspirin PO 325 mg QDAY [facility] Administration Atorvastatin Calcium 40 mg 01/29/19 22:00 Lipitor PO QHS [facility] Bisacodyl 10 mg 01/28/19 22:11 Dulcolax DC QDAY PRN Constipation Citalopram Hydrobromide 20 mg 01/29/19 12:00 Celexa PO QDAY [facility] Enoxaparin Sodium 40 mg 01/29/19 10:00 01/29/19 10:54 Enoxaparin SUB-Q 40 mg QDAY@1000 [facility] Administration Ferrous Sulfate 325 mg 01/29/19 12:00 Feosol PO BID [facility] Magnesium Hydroxide 30 ml 01/28/19 22:11 Milk Of Magnesia PO Q4H PRN Constipation Metoclopramide HCl 10 mg 01/28/19 22:11 Reglan PO Q6H PRN Nausea And Vomiting Miscellaneous Medication 0.5 mg 01/29/19 14:00 Alprazolam [Alprazolam Odt] PO TID [facility] Miscellaneous Medication 325 mg 01/29/19 11:15 Ferrous Sulfate PO DAILY [facility] Miscellaneous Medication 25 mg 01/29/19 11:30 Meclizine PO DAILY [facility] Ondansetron HCl 4 mg 01/28/19 22:11 01/29/19 04:31 Zofran IV 4 mg Q8H PRN Administration Nausea And Vomiting Sodium Chloride 10 ml 01/28/19 22:11 Sodium Chloride Flush Syringe 10 Ml IV PRN PRN LINE FLUSH
[2019-01-29] MEDS ORDERED: MECLIZINE 25 MG PO SCH (11:30)
[2019-01-29] MEDS ORDERED: CITALOPRAM 20 MG TAB PO SCH (12:00)
--- NOTE | 2019-01-29 12:55 | Consultation ---
History of Present Illness Consult date: 01/29/19 Medications and Allergies Allergies Allergy/AdvReac Type Severity Reaction Status Date / Time No Known Allergies Allergy Verified 11/11/15 23:43 Home Medications Medication Instructions Recorded Confirmed Last Taken Type Butalbital-Acetaminophn 50-325 40 mg PO DAILY 11/11/15 01/29/19 1 Day Ago History ~11/10/15 Ferrous Sulfate 325 mg PO DAILY 11/11/15 01/29/19 1 Day Ago History ~11/10/15 Meclizine 25 mg PO DAILY 11/11/15 01/29/19 1 Day Ago History ~11/10/15 HYDROcodone/APAP 5-325 [Harman 1 each PO Q6HR PRN #10 tablet 11/12/15 01/29/19 Unknown Rx 5-325 mg TAB] Ferrous Sulfate [Feosol 325 MG tab] 325 mg PO BID #60 tablet 03/01/17 01/29/19 Unknown Rx ALPRAZolam [ALPRAZolam Odt] 0.5 mg PO TID 01/28/19 01/29/19 01/28/19 History Citalopram [celeXA] 20 mg PO QDAY 01/28/19 01/28/19 Unknown History Active Meds: Active Medications Acetaminophen (Tylenol) 650 mg PO Q4H PRN PRN Reason: Pain, Mild (1-3) Last Admin: 01/29/19 04:04 Dose: 650 mg Documented by: Acetaminophen/Hydrocodone Bitart (Harman 5/325) 1 each PO Q6H PRN PRN Reason: Pain, Moderate (4-6) Last Admin: 01/29/19 01:47 Dose: 1 each Documented by: Acetaminophen/Hydrocodone Bitart (Harman 5/325) 1 each PO Q6HR PRN PRN Reason: PAIN Alprazolam (Xanax) 0.5 mg PO TID [facility] Aspirin (Aspirin) 325 mg PO QDAY [facility] Last Admin: 01/29/19 10:54 Dose: 325 mg Documented by: Atorvastatin Calcium (Lipitor) 40 mg PO QHS [facility] Bisacodyl (Dulcolax) 10 mg [place] QDAY PRN PRN Reason: Constipation Citalopram Hydrobromide (Celexa) 20 mg PO QDAY [facility] Enoxaparin Sodium (Enoxaparin) 40 mg SUB-Q QDAY@1000 [facility] Last Admin: 01/29/19 10:54 Dose: 40 mg Documented by: Ferrous Sulfate (Feosol) 325 mg PO QDAY [facility] Magnesium Hydroxide (Milk Of Magnesia) 30 ml PO Q4H PRN PRN Reason: Constipation Meclizine HCl (Antivert) 25 mg PO DAILY [facility] Metoclopramide HCl (Reglan) 10 mg PO Q6H PRN PRN Reason: Nausea And Vomiting Ondansetron HCl (Zofran) 4 mg IV Q8H PRN PRN Reason: Nausea And Vomiting Last Admin: 01/29/19 04:31 Dose: 4 mg Documented by: Sodium Chloride (Sodium Chloride Flush Syringe 10 Ml) 10 ml IV PRN PRN PRN Reason: LINE FLUSH Physical Examination Vital Signs Temp Pulse Resp BP Pulse Ox 97.9 F 76 17 191/81 100 01/28/19 17:24 01/28/19 17:24 01/28/19 17:24 01/28/19 17:24 01/28/19 17:24 Results 01/28/19 17:47 01/28/19 17:47 Cardiac Enzymes 01/28/19 01/29/19 Range/Units 23:49 06:59 CK-MB (CK-2) 5.0 H 2.7 (0.0-4.0) ng/mL Coagulation 01/28/19 Range/Units 17:47 PT 13.3 (12.2-14.9) Sec. INR 1.00 (0.87-1.13) APTT 26.4 (24.2-36.6) Sec. Lipids 01/29/19 Range/Units 06:59 Triglycerides 83 (2-149) mg/dL Cholesterol 203 H (50-199) mg/dL HDL Cholesterol 68 H (40-59) mg/dL Cholesterol/HDL Ratio 2.98 % CBC 01/28/19 Range/Units 17:47 WBC 7.6 (4.5-11.0) K/mm3 RBC 4.07 (3.65-5.03) M/mm3 Hgb 10.2 (10.1-14.3) gm/dl Hct 31.8 (30.3-42.9) % Plt Count 366 (140-440) K/mm3 Lymph # 1.2 (1.2-5.4) K/mm3 [place] # 0.8 (0.0-0.8) K/mm3 Eos # 0.0 (0.0-0.4) K/mm3 Baso # 0.1 (0.0-0.1) K/mm3 Comprehensive Metabolic Panel 01/28/19 Range/Units 17:47 Sodium 138 (137-145) mmol/L Potassium 3.6 (3.6-5.0) mmol/L Chloride 101.2 (98-107) mmol/L Carbon Dioxide 19 L (22-30) mmol/L BUN 19 H (7-17) mg/dL Creatinine 0.6 L (0.7-1.2) mg/dL Glucose 114 H (65-100) mg/dL Calcium 9.1 (8.4-10.2) mg/dL Assessment and Plan Detailed Cardiology consult dictated.
[2019-01-29] MEDS ORDERED: FERROUS SULFATE 325 MG TAB PO SCH (13:00)
[2019-01-29] MEDS ORDERED: MECLIZINE 25 MG TAB PO SCH (14:00)
[2019-01-29] MEDS ORDERED: ALPRAZolam 0.5 MG TAB PO SCH (14:00)
[2019-01-29] MEDS ORDERED: ALPRAZOLAM 0.5 MG PO SCH (14:00)
--- NOTE | 2019-01-29 14:03 | Discharge Summary ---
Providers - Providers Date of Admission: 01/28/19 22:12 Date of discharge: 01/29/19 Attending physician: TRUDI RADFORD 01/28/19 18:25 Speech Therapy Evaluation and Treat [CONS] Routine Reason For Exam: Failed bedside 01/28/19 22:12 Occupational Therapy Evaluate and Treat [CONS] Routine Comment: Reason For Exam: Neuro deficits Physical Therapy Evaluation and Treat [CONS] Routine Comment: Reason For Exam: Neuro deficits 01/29/19 06:53 Consult to Physician [CONS] Routine Comment: Consulting Provider: JOSE PADILLA Physician Instructions: Reason For Exam: hemiplegia 01/29/19 11:30 Consult to Physician [CONS] Routine Comment: Consulting Provider: TONYA CORTEZ Physician Instructions: Reason For Exam: chest pain Primary care physician: A[employer]ICULT[employer] SPECIALIST Hospitalization Condition: Stable Hospital course: Patient is a 43 yo Hungarian speaking woman (daughter is a Nurse at [employer])with a history of hypertension, migraine, anxiety and depression who presents to [facility] ED with severe headache and right sided weakness. CODE STROKE called in ER and TeleNeurologist used. Patient not tPA candidate because last known well time is greater than 4.5 hours prior to her presentation. * TTE Conclusions: Estimated EF 55-60%, trace MR * pCXR Impression: No acute findings * CTA neck Impression: no significant stenosis * CTA head Impression: no vessel occlusion or significant narrowing * CT head without contrast negative * UDS +Barbs and Amphetamines TIA + Acute toxic (amphetamines) encephalopathy ruled out Acute CVA Obtain MRI pending but d/w radiologist, Dr. Poon, no acute stroke Carotid doppler negative Consult neurology, PT, OT Start aspirin, statin Hypertension: unControlled IV hydralazine needed for blood pressure control Chest pain, atypical, Check cardiac enzymes, no stress test d/w Cardiology +Amphetamines use Counseling done DVT prophylaxis Disposition: DC-01 TO HOME OR SELFCARE Time spent for discharge: 34 minutes Core Measure Documentation - Palliative Care Palliative Care/ Comfort Measures: Not Applicable - Core Measures Any of the following diagnoses?: none - VTE Discharge Requirements Deep Vein Thrombosis/Pulmonary Embolism Present on Admission: No Has pt received <5 days of overlap therapy or INR<2.0: No Anticoagulant overlap therapy prescribed at discharge: No Contraindication No Overlap Therapy order at DC: Not Indicated Exam - Physical Exam Narrative exam: Gen: WDWN, NAD, Awake, Alert, Orientated HEENT: NCAT, EOMI, PERRL, OP Clear Neck: supple, no adenopathy, no thyromegaly, no JVD CVS/Heart: RRR, normal S1S2, pulses present bilaterally Chest/Lungs: CTA B, Symmetrical chest expansion, good air entry bilaterally GI/Abdomen: soft, NTND, good bowel sounds, no guarding or rebound /Bladder: no suprapubic tenderness, no CVA or paraspinal tenderness Extermity/Skin: no c/c/e, no obvious rash MSK: FROM x 3, 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
[2019-01-29 15:29] VITALS: BP 110/56
--- NOTE | 2019-01-29 17:46 | Vascular Lab Report ---
"DUPLEX DOPPLER ULTRASOUND CAROTID, BILATERAL INDICATION: right sided weakness, headache. FINDINGS: RIGHT CAROTID: No significant atherosclerotic plaque. Right CCA velocity: 106 cm/sec. Right ICA peak systolic velocity: 124 cm/sec. ICA/CCA PSV Ratio: 1.2. Right Vertebral Artery: Antegrade flow. LEFT CAROTID: No significant atherosclerotic plaque. Left CCA velocity: 87 cm/sec. Left ICA peak systolic velocity: 114 cm/sec. ICA/CCA PSV Ratio: 1.3. Left Vertebral Artery: Antegrade flow. IMPRESSION: 1. Right Internal Carotid Artery: Less than 50% diameter stenosis. 2. Left Internal Carotid Artery: Less than 50% diameter stenosis. Velocity criteria are extrapolated from diameter data as defined by the Society of Radiologists in Ul trasound Consensus Conference, Radiology 2003; 229;340-346. Degree of Stenosis (%) || ICA PSV (cm/sec) || Plaque estimate (%) || ICA/CCA PSV Ratio Normal <125 None <2.0 <50 <125 <50 <2.0 50-69 125-230 50 2.0-4.0 70 but less than 100 >230 50 >4.0 Near occlusion High, low, or none visible variable Total occlusion None visible; no lumen N/A Signer Name: Jorge Reeves MD Signed: 01/29/2019 5:41 PM Workstation Name: [id number]"
--- NOTE | 2019-01-30 02:14 | Consultation ---
CARDIOLOGY CONSULTATION REPORT AGE: 43. SEX: Female. REFERRING PHYSICIAN: Scot Andujar MD, hospitalist. The patient does not speak or understand Palauan well. Most of the history is obtained from her family members, who are at bedside. HISTORY OF PRESENT ILLNESS: A 43-year-old pleasant woman was admitted with the sudden onset of weakness of the right upper and lower extremity. It started around 12:00 p.m. yesterday. She was already evaluated by a neurologist, and neurological workup was done. CAT scan of the head was negative. Carotid Doppler is pending. MRI was done and the report is pending at this time. Apparently, after she had right-sided weakness, she also had loss of consciousness and she slept and woke up after 4-5 hours. She still has the right-sided weakness, but it has improved. She also gives the history of some atypical left-sided chest pains. Serial troponins were negative, and myocardial infarction has been ruled out. She is not a known hypertensive. Her blood pressure initially was very high -- 211/103 mmHg, and it has come down to 168/82 mmHg this a.m. No history of diabetes mellitus. She does not give any history of hyperlipidemia; however, her LDL during this admission is 127 with a total cholesterol of 203. PAST MEDICAL HISTORY: History of in the past. She is premenopausal. No history of CAD or myocardial infarction in the past. She has a history of chronic anemia, anxiety, and depression. No history of any thyroid problems. SOCIAL HISTORY: She has been a light smoker for about 28 years, 1 pack of cigarettes will last for a week. Occasionally, she takes alcohol. No history of drug abuse. FAMILY HISTORY: Negative for premature coronary artery disease. MEDICATIONS: Xanax 0.5 mg p.o. t.i.d., aspirin 325 mg p.o. daily, atorvastatin 40 mg p.o. daily, Celexa 20 mg p.o. daily, Lovenox 40 mg subcutaneous daily, ferrous sulfate 325 mg p.o. daily, and meclizine 25 mg p.o. daily. REVIEW OF SYSTEMS: CARDIOVASCULAR SYSTEM: As described in the history. NEUROLOGICAL: As described in the history. METABOLISM AND ENDOCRINOLOGY: As described in the history. GENITOURINARY SYSTEM: As described in the history. Review of rest of the 10 systems negative. PHYSICAL EXAMINATION: GENERAL: A 43-year-old pleasant woman. VITAL SIGNS: She is afebrile, pulse 76 per minute and regular, respirations 18 per minute, and blood pressure 168/82 mmHg. NECK: Supple, no JVD, no bruit, and no thyromegaly. HEART: PMI in the normal position. No palpable thrills or heart sounds. Auscultation of the heart reveals S1 and S2 are heard. S2 is loud. No S3 or S4. Grade 2/6 soft ejection systolic murmur is heard all over the precardium, more prominent over the base. No gallop. EXTREMITIES: Peripheral pulses felt. No edema. LUNGS: Bilateral air entry good and equal. No bronchial breathing. No wheezing. ABDOMEN: Soft and benign. No organomegaly. SKIN: Negative. NEUROLOGIC: She is alert and oriented x3. She has a right hemiparesis, grade 3-4/5 in the right lower extremity and grade 4/5 in the right upper extremity. LABORATORY DATA: WBC and platelet count are normal. Hemoglobin and hematocrit 10.2 and 31.8 respectively. Potassium 3.6. BUN and creatinine within normal limits. Sodium 138. Troponins as described in the history. EKG: Normal sinus rhythm, within normal limits. CAT scan of the brain is negative. Lipid panel revealed total cholesterol of 203, LDL of 127, and triglycerides of 83. The patient's echocardiogram revealed normal LV systolic function with EF around 55-60%, no evidence of intracardiac shunt, and trace mitral regurgitation and there was no pericardial effusion. IMPRESSION: 1. Acute cerebrovascular accident with right hemiparesis. 2. Accelerated hypertension -- blood pressure is improving. 3. Hypercholesterolemia. 4. History of anxiety and chronic depression. 5. Chronic anemia. 6. Atypical chest pains, myocardial infarction ruled out. RECOMMENDATIONS: 1. We will not give any antihypertensives, as she has had recent cerebrovascular accident. 2. Close observation on telemetry. 3. Follow up with the neurologist. The condition of the patient and further plans were discussed in detail with the family members, who are at bedside. They understand and wants us to proceed. Thanking again. We will follow. Yours sincerely. JOB# [id number] [facility]
[2019-01-30] MEDS ORDERED: FERROUS SULFATE 325 MG TAB PO SCH (10:00)
--- NOTE | 2019-01-30 12:07 | Magnetic Resonance Report ---
MR brain wo con INDICATION / CLINICAL INFORMATION: 43 years Female; stroke. TECHNIQUE: Multiplanar, multisequence MR images of the brain were obtained. COMPARISON: CT - 01/28/2019 FINDINGS: BRAIN / INTRACRANIAL CONTENTS: Probable perivascular space seen in the inferior gangliocapsular regio n on the right. No acute hemorrhage, mass effect, midline shift, hydrocephalus, or acute, large paulette torial infarct. No chronic infarct or atrophy. There are mild areas of increased signal intensity on FLAIR imaging in the white matter of the cerebr al hemispheres. These are nonspecific findings and may be related to microangiopathy (hypertension, d iabetes, atherosclerosis), given the patient's age. CRANIOCERVICAL JUNCTION: No significant abnormality. VASCULAR FLOW-VOIDS: No significant abnormality. ORBITS: No significant abnormality of visualized orbits. SINUSES / MASTOIDS: Minimal mucosal thickening seen in the ethmoids. ADDITIONAL FINDINGS: None. IMPRESSION: 1. No focal mass, hemorrhage, hydrocephalus, or acute ischemia. Signer Name: Bernardo Baker MD, III Signed: 01/29/2019 10:50 AM Workstation Name: [id number]
== END 2019-01-29 19:12 | disposition home or self-care (01) | DRG 69 ==
LOC: ED 17:06 → 4A 22:12
PROVIDERS: ADMIT Internal Medicine; ATTEND Internal Medicine
DX: G45.9 Transient cerebral ischemic attack, unspecified (principal); G92 Toxic encephalopathy; G43.909 Migraine, unspecified, not intractable, without status migrainosus; I10 Essential (primary) hypertension; F17.210 Nicotine dependence, cigarettes, uncomplicated; F32.9 Major depressive disorder, single episode, unspecified; F41.9 Anxiety disorder, unspecified; F15.90 Other stimulant use, unspecified, uncomplicated; Z79.899 Other long term (current) drug therapy; Z82.49 Family history of ischemic heart disease and other diseases of the circulatory system; Z71.51 Drug abuse counseling and surveillance of drug abuser
CPT/HCPCS: 36415; 70450; 70496; 70498; 70551; 71045; 80048; 80061; 80307; 82550; 82553; 82962; 84484; 84703; 85025; 85610; 85670; 85730; 87116; 93005; 93010; 93306; 93880; G0378; J1650; J2270; J2405; Q9967